=== PATIENT | female | born 1955 | race Caucasian/White ===

== ENCOUNTER → 2017-10-12 | Outpatient (CLI) | payer OTHER ==
--- NOTE | 2017-10-12 09:13 | CT ---
EXAMINATION TYPE: CT brain w con DATE OF EXAM: 10/12/2017 COMPARISON: None HISTORY: 61-year-old female other convulsions, seizures CT DLP: 1076 mGycm Automated exposure control for dose reduction was used. Technique: CT scan of the head is performed with IV Contrast, patient injected with 100 mL of Isovue 300. Coronal and sagittal reconstructions performed. FINDINGS: There is no abnormal enhancing mass or midline shift identified. Dural venous sinuses appear patent. The ventricles and sulci are within normal limits in size. Partially empty sella. The globes are intact. Probably air-fluid level left sphenoid sinus. Mastoid air cells well pneumati zed. IMPRESSION: 1. Partially empty sella which may be an incidental finding. Otherwise, negative contrast enhanced he ad CT exam. 2. Air fluid level left sphenoid sinus. Correlate to exclude acute sinusitis.
== END | disposition home or self-care (01) ==
LOC: RADCTMAIN 07:25
PROVIDERS: ATTEND Family Medicine
DX: R56.9 Unspecified convulsions (principal)
CPT/HCPCS: 70460; Q9967

== ENCOUNTER 2017-10-28 06:40 | Day surgery (SDC) | payer OTHER ==
[2017-10-25 14:09] VITALS: BMI 38.6
[~2017-10-28 06:40] MED LIST: LACTATED RINGERS 1,000 ML IV SCH
[2017-10-28 07:28] VITALS: TEMP 98.2
[2017-10-28 07:30] LABS: Glucose,Whole Blood 153 mg/dL (75-99)
[2017-10-28] MEDS ORDERED: GLUCAGON 1 MG/ML VIAL ONE (07:45)
[2017-10-28] MEDS ORDERED: LIDOCAINE 1% INJ 10MG/ML (20 ML MDV) ONE (07:45)
[2017-10-28] MEDS ORDERED: PROPOFOL 10 MG/ML 20 ML VIAL IV ONE (07:45)
--- NOTE | 2017-10-28 07:52 | P.GSHP ---
History of Present Illness H&P Date: 10/28/17 Chief Complaint: History of colonic Polyp, GERD This is a 61-year-old female for from Dr. garcia. Patient has safer EGD colonoscopy. She had a previous history of colonic polyps, GERD, peptic ulcer disease. Past Medical History Past Medical History: Asthma, Diabetes Mellitus, Hyperlipidemia, Hypertension, Seizure Disorder, Thyroid Disorder Additional Past Medical History / Comment(s): only 1 asthma attack, pernicious & chronic anemia; 1 seizure; hemorrhoids; "fast heart rate". History of Any Multi-Drug Resistant Organisms: None Reported Past Surgical History: Orthopedic Surgery, Tonsillectomy Additional Past Surgical History / Comment(s): RT SHOULDER ROTATOR CUFF; Trigger finger; cysts removed under eyes Past Anesthesia/Blood Transfusion Reactions: Motion Sickness Smoking Status: Current every day smoker - Past Family History Mother Family Medical History: No Reported History Medications and Allergies Home Medications Medication Instructions Recorded Confirmed Type Albuterol Inhaler [Ventolin Hfa 2 puff INHALATION DIRECTED PRN 04/04/1510/28 History Inhaler] Cholecalciferol [Vitamin D3] 4,000 unit PO DAILY 04/04/15 10/28/17 History Cyanocobalamin [Vitamin B-12 1,000 mcg IM Q15D 04/04/15 10/28/17 History Injection] Levothyroxine Sodium [Synthroid] 125 mcg PO QAM 04/04/15 10/28/17 History Metoprolol Tartrate [Lopressor] 50 mg PO BID 04/04/15 10/28/17 History glipiZIDE [Glucotrol] 5 mg PO BID 04/04/15 10/28/17 History Acetaminophen [Tylenol] 325 mg PO Q4H 10/25/17 10/28/17 History Ferrous Sulfate [Feosol] 325 mg PO DAILY 10/25/17 10/28/17 History Meclizine [Antivert] 25 mg PO TID PRN 10/25/17 10/28/17 History Rosuvastatin [Crestor] 10 mg PO HS 10/25/17 10/28/17 History sitaGLIPtin [Januvia] 100 mg PO DAILY 10/25/17 10/28/17 History Allergies Allergy/AdvReac Type Severity Reaction Status Date / Time Iodinated Contrast- Oral and Allergy Rash/Hives Unverified 10/12/17 07:47 IV Dye latex Allergy Itching Verified 07/08/15 13:29 codeine AdvReac "made me Verified 07/08/15 13:29 very nervous" Surgical - Exam Vital Signs Temp Pulse Resp BP Pulse Ox 98.2 F 69 16 133/76 95 10/28/17 07:27 10/28/17 07:27 10/28/17 07:27 10/28/17 07:27 10/28/17 07:27 - General well developed, no distress - Eyes PERRL - ENT normal pinna - Neck no masses - Respiratory normal expansion - Cardiovascular Rhythm: regular - Abdomen Abdomen: soft, non tender Results - Labs Abnormal Lab Results - Last 24 Hours (Table) 10/28/17 Range/Units 07:24 POC Glucose (mg/dL) 153 H (75-99) mg/dL Assessment and Plan Assessment: History of colonic polyps, GERD. We'll perform EGD and colonoscopy.
--- NOTE | 2017-10-28 08:18 | P.OP ---
Date of Procedure: 10/28/17 Preoperative Diagnosis: History of colonic polyps GERD Hiatal hernia Postoperative Diagnosis: Antral gastritis Sliding hiatal hernia Mild esophagitis Procedure(s) Performed: EGD Colonoscopy Anesthesia: MAC Surgeon: Rory Marshall Pathology: other (Antral, esophagus) Condition: stable Disposition: PACU Description of Procedure: The patient's placed on the endoscopy table in the lateral position. She received IV sedation. The gastric was placed oropharynx passed in the esophagus and stomach. Scope was then placed through the pylorus. The first and second portion of duodenum appeared normal. Scope was then brought back the antrum this. Mildly inflamed. A biopsies performed. The scope was then retroflexed and the remainder of the stomach appeared normal. There was a small sliding hiatal hernia. The GE junction was at 38 cm. The distal esophagus appeared mildly inflamed. A biopsies performed. The proximal esophagus appeared normal. Scope was withdrawn for patient. Next digital rectal exam was performed. There were external and internal hemorrhoids noted. The flexible colonoscope was then placed patient anus passed throughout the entire colon. The ileocecal valve was visualized. The cecum, ascending colon was normal. The transverse colon a few scattered diverticula. In the descending colon there was a polyp seen this removed the forcep. Scope was then brought back and sigmoid colon were diverticular were seen. Scope was brought back the rectum and polyp seen the polyp removed by the snare and by the forcep. Scope was withdrawn for patient.
[2017-10-28 09:03] VITALS: BP 136/86; PULSE 61; RESP 18
== END 2017-10-28 09:09 | disposition home or self-care (01) ==
LOC: ORWHC2ENDO 06:40
PROVIDERS: ATTEND Surgery
DX: K29.50 Unspecified chronic gastritis without bleeding (principal); K64.4 Residual hemorrhoidal skin tags; K64.8 Other hemorrhoids; K62.1 Rectal polyp; K21.0 Gastro-esophageal reflux disease with esophagitis; K63.5 Polyp of colon; K44.9 Diaphragmatic hernia without obstruction or gangrene; K57.30 Diverticulosis of large intestine without perforation or abscess without bleeding; I10 Essential (primary) hypertension; E78.5 Hyperlipidemia, unspecified; J44.9 Chronic obstructive pulmonary disease, unspecified; F17.210 Nicotine dependence, cigarettes, uncomplicated; G40.909 Epilepsy, unspecified, not intractable, without status epilepticus; E11.9 Type 2 diabetes mellitus without complications; Z79.84 Long term (current) use of oral hypoglycemic drugs; Z79.899 Other long term (current) drug therapy; Z88.5 Allergy status to narcotic agent; Z88.8 Allergy status to other drugs, medicaments and biological substances; Z91.041 Radiographic dye allergy status; Z86.010 Personal history of colon polyps
CPT/HCPCS: 88305; 45385; 45380; 43239; J1610; J2001; J2704

== ENCOUNTER 2018-04-07 06:39 | Day surgery (SDC) | payer OTHER ==
[2018-04-01 11:27] VITALS: BMI 38.6
[~2018-04-07 06:39] MED LIST changes: +ALPRAZolam 0.25 MG TAB PO PRN; +ALPRAZolam 0.5 MG TAB PO PRN; +ASPIRIN 325 MG TAB PO STA; +ATORVASTATIN 80 MG TAB PO STA; -LACTATED RINGERS 1,000 ML IV SCH; +NITROGLYCERIN SL TABS 0.4 MG TAB SUBLINGUAL PRN; +SODIUM CHLORIDE 0.9% 1,000 ML in EMPTY BAG 1 BAG IV ONE
[2018-04-07 07:09] VITALS: TEMP 98.2
[2018-04-07] MEDS ORDERED: INSULIN ASPART 100 UNIT/ML 1 ML 10 ML VIAL SQ ONE (07:18)
[2018-04-07 07:22] LABS: Glucose,Whole Blood 353 mg/dL (75-99)
[2018-04-07] MEDS ORDERED: fentaNYL (PF) 50 MCG/ML 2 ML AMP IV ONE (07:57)
[2018-04-07] MEDS ORDERED: LIDOCAINE 1% INJ 10MG/ML (20 ML MDV) SQ ONE (08:02)
[2018-04-07] MEDS ORDERED: VERAPAMIL SYRINGE (5 MG/10 ML) INTRAARTER ONE (08:05)
[2018-04-07] MEDS ORDERED: MIDAZOLAM 2 MG/2 ML VIAL IV ONE (08:07)
[2018-04-07] MEDS ORDERED: HEPARIN SODIUM 1,000 UN/ML (10ML VL) IV ONE (08:12)
[2018-04-07] MEDS ORDERED: IOPAMIDOL-370 125ML BTL INJ ONE (08:15)
[2018-04-07] MEDS ORDERED: RX INFO: IV CONTRAST WAS GIVEN 1 EACH MISC MISCELLANE PRN (08:33)
[2018-04-07] MEDS ORDERED: MECLIZINE 12.5 MG TAB PO PRN (08:34)
[2018-04-07] MEDS ORDERED: NICOTINE POLACRILEX 4 MG BUCCAL PRN (08:34)
[2018-04-07] MEDS ORDERED: CYANOCOBALAMIN 1,000 MCG/ML 1 ML VIAL IM SCH (08:45)
[2018-04-07] MEDS ORDERED: SODIUM CHLORIDE 0.9% 1,000 ML IV SCH (08:45)
[2018-04-07 08:50] VITALS: RESP 18
[2018-04-07] MEDS ORDERED: LEVOTHYROXINE 125 MCG TAB PO SCH (09:00)
[2018-04-07] MEDS ORDERED: MULTIVITAMINS, THERA 1 EACH TAB PO SCH (09:00)
[2018-04-07] MEDS ORDERED: NON-FORMULARY DRUG (Vitamin B Complex [Vitamin B Complex] 1 EACH) PO SCH (09:00)
[2018-04-07] MEDS ORDERED: NON-FORMULARY DRUG (Ubidecarenone [Co Q-10] 100 MG) PO SCH (09:00)
[2018-04-07] MEDS ORDERED: NON-FORMULARY DRUG (Losartan Potassium [Losartan Potassium] 100 MG) PO SCH (09:00)
[2018-04-07] MEDS ORDERED: CHOLECALCIFEROL 1,000 UNIT TAB PO SCH (09:00)
--- NOTE | 2018-04-07 09:17 | CC ---
CARDIAC CATHETERIZATION REPORT Mrs. Sanders is a 62-year-old female with known history of hypertension, hyperlipidemia, diabetes mellitus, and chronic tobacco use and a prior history of coronary artery disease who is scheduled to undergo surgical intervention and had an abnormal myocardial perfusion imaging. In view of that, recommendation was made regarding cardiac catheterization. The procedure as well as the risks and the complications were discussed with the patient who is in full understanding and agreement. PROCEDURE: Patient was brought to slab grinder in a fasting semi-sedated state after receiving fentanyl and Benadryl and achieving moderate conscious sedated state. Using Xylocaine anesthesia in the Seldinger technique, a 6-Ugandan sheath was introduced in the right radial artery. Selective right and left coronary angiography was performed using 5- [place]an 3.5 bend right and left Kulwinder catheter. Multiple views of the coronary artery including hemiaxial views obtained. Following that 5-U[place]andan tight pigtail catheter was introduced in the left ventricle and a 30-degree CHAVEZ view of the left ventricle was obtained. Following that, catheter and sheaths were removed. Hemostasis was obtained with deployment of a TR band. There was no complication. The patient was returned to her room in stable condition. Of note, the patient received 5000 units of intravenous heparin as well as intra-arterial verapamil. FINDINGS: FLUOROSCOPY: There was calcification involving the left main and the left circumflex. LEFT MAIN: This is a large-sized vessel bifurcating left circumflex, left anterior descending artery. Left main coronary artery has a 20% to 30% plaque in the distal segment. LEFT ANTERIOR DESCENDING ARTERY: This is a large-sized vessel reaching to the apex with a wraparound apex segment giving rise to 2 diagonal branches. The left anterior descending artery proximal segment has mild intimal disease of 10% to 20% without any evidence of high-grade stenosis. LEFT CIRCUMFLEX: This is a nondominant large vessel giving rise to a large obtuse marginal branch. The left circumflex at the ostium has a 30% plaque. The rest of the vessel has no high-grade stenosis. RIGHT CORONARY ARTERY: This is a dominant vessel bifurcating distally PDA, posterolateral segment and branches. The right coronary artery has mild plaque in the mid segment of 10%. The rest of the vessel has no high-grade stenosis. LEFT VENTRICULOGRAM: Left ventriculogram is performed 30-degree CHAVEZ view and revealed normal left ventricular size and systolic function. Ejection fraction 60%. There was no significant mitral regurgitation. HEMODYNAMICS: There was no gradient across the aortic valve. The left ventricular end- diastolic pressure was 20 to 24 mmHg. CONCLUSION: 1. Mild disease in the distal left main. 2. Mild disease in the ostium of the left circumflex with minimal plaque in the left anterior descending artery and the right coronary artery. 3. Calcified left main. 4. Normal left ventricular size and systolic function. RECOMMENDATION: In view of findings of the anatomy, I recommend to continue medical therapy with aggressive coronary risk modifications that have been initiated. Those findings and recommendations were discussed with the patient and her family and they are in full understanding and agreement. MMODL / IJN: [id number] / MTDD
[2018-04-07 10:07] VITALS: PULSE 76
[2018-04-07 10:12] VITALS: BP 124/88
[2018-04-07] MEDS ORDERED: NON-FORMULARY DRUG (Sitagliptin 100 MG) PO SCH (12:00)
[2018-04-07] MEDS ORDERED: METOPROLOL TARTRATE 50 MG TAB PO SCH (17:00)
[2018-04-07] MEDS ORDERED: glipiZIDE 5 MG TAB PO SCH (17:30)
[2018-04-07] MEDS ORDERED: FERROUS SULFATE 325 MG TAB PO SCH (17:30)
[2018-04-07] MEDS ORDERED: NON-FORMULARY DRUG (Rosuvastatin 10 MG) PO SCH (21:00)
== END 2018-04-07 13:35 | disposition home or self-care (01) ==
LOC: CATHCVL 06:39
PROVIDERS: ATTEND Internal Medicine Interventional Cardiology
DX: I25.10 Atherosclerotic heart disease of native coronary artery without angina pectoris (principal); E78.2 Mixed hyperlipidemia; I10 Essential (primary) hypertension; F17.210 Nicotine dependence, cigarettes, uncomplicated; E11.9 Type 2 diabetes mellitus without complications; Z79.84 Long term (current) use of oral hypoglycemic drugs; Z79.890 Hormone replacement therapy; Z79.899 Other long term (current) drug therapy; Z88.5 Allergy status to narcotic agent; Z82.49 Family history of ischemic heart disease and other diseases of the circulatory system
CPT/HCPCS: 93458; C1894; C1769; J2250; J2001; J3010; J1644; Q9967